=== PATIENT | male | born 1965 | race Caucasian/White ===

== ENCOUNTER 2017-01-28 22:27 | Emergency (ER) | payer OTHER ==
[~2017-01-28] VITALS: Ht 182.9 cm; Wt 85.2 kg
[2017-01-28 22:28] VITALS: BP 116/71
[2017-01-28] MEDS ORDERED: IBUPROFEN 200 MG TABLET ONE (23:43)
[2017-01-29] MEDS ORDERED: IBUPROFEN 200 MG TABLET PO ONE
== END 2017-01-29 00:15 | disposition home or self-care (01) ==
LOC: ED 23:59
DX: S60.571A Other superficial bite of hand of right hand, initial encounter (principal); W54.0XXA Bitten by dog, initial encounter; Y93.89 Activity, other specified; Y99.8 Other external cause status; Y92.009 Unspecified place in unspecified non-institutional (private) residence as the place of occurrence of the external cause
CPT/HCPCS: 99284